=== PATIENT | female | born 1995 | race Caucasian/White ===

== ENCOUNTER 2018-07-08 06:42 | Emergency (ER) | payer SELFPAY ==
[~2018-07-08] VITALS: Wt 67.6 kg
[2018-07-08 06:45] VITALS: BP 138/65; PULSE 82; RESP 16
[2018-07-08] MEDS ORDERED: PRED20TA PO (07:03)
[2018-07-08] MEDS ORDERED: BEN25 PO (07:03)
--- NOTE | 2018-07-08 08:00 | ERD ---
ER Documentation Chief Complaint Chief Complaint RASH/ITCHING ON FACE X2 DAYS, REDNESS ON RIGHT EYE HPI Patient is a 23-year-old female with no medical problems who presents with a rash. The patient said that she had a rash to her face which started yesterday. The rash was very itchy and red. The symptoms were better today as there was less redness but the face is still itchy. The patient has no fevers. She denies any new soaps, lotions, or medicines. She tried hydrocortisone cream to the skin. ROS All systems reviewed and are negative except as per history of present illness. Medications Home Meds Active Scripts Diphenhydramine Hcl* (Benadryl*) 25 Mg Cap, 25 MG PO Q6, #30 CAP Prov:DALLAS MORRISON MD 07/08/18 Prednisone* (Prednisone*) 20 Mg Tab, 60 MG PO DAILY for 5 Days, TAB Prov:DALLAS MORRISON MD 07/08/18 PMhx/Soc Medical and Surgical Hx: pt denies Medical Hx Hx Alcohol Use: No Hx Substance Use: No Hx Tobacco Use: No Smoking Status: Never smoker FmHx Family History: No diabetes Physical Exam Vitals Vital Signs Date Temp Pulse Resp B/P (MAP) Pulse Ox O2 O2 Flow FiO2 Time Delivery Rate 07/08/18 97.1 82 16 138/65 99 06:45 (89) Physical Exam Const: No acute distress Eyes: Normal Conjunctiva ENT: Normal External Ears, Nose and Mouth. Skin: Mild erythema to the face without signs of infection Neur: Awake and alert Psych: Normal Mood and Affect Procedures/MDM Patient is a 23-year-old female with no medical problems who presents with a facial rash. This appears to be an allergic type rash but she has no new soaps, lotions, medications. I doubt infectious etiology. The patient will be given prednisone and Benadryl. She can return for any worsening symptoms. There is no oropharyngeal swelling or stridor and I believe outpatient management is appropriate. Departure Diagnosis: Primary Impression: Rash Condition: Fair Patient Instructions: Self-Care for Skin Rashes Referrals: Your doctor Additional Instructions: Call your primary care doctor TOMORROW for an appointment during the next 1-2 days.See the doctor sooner or return here if your condition worsens before your appointment time. DALLAS MORRISON MD Jul 08, 2018 08:00
== END 2018-07-08 07:43 | disposition home or self-care (01) ==
LOC: FTE 06:42
DX: R21 Rash and other nonspecific skin eruption (principal)
CPT/HCPCS: 99283